=== PATIENT | female | born 1960 | race Native Hawaiian/Other Pacific Islander ===

== ENCOUNTER 2020-08-13 19:14 | Emergency (ER) | payer OTHER ==
[~2020-08-13] VITALS: Ht 154.9 cm; Wt 69.4 kg
[2020-08-13 19:14] VITALS: BP 132/71; TEMP 98.3
[~2020-08-13 19:14] MED LIST: CLON0.5T36 PO; CLON1TAB18 PO; DESCOVY 200-251 TAB PO; DIVA500T2 PO; DOCU100C10 PO; FIORICET 50-3001 CAP PO; FOLI1TAB26 PO; HYDROXYZ PAM100 MG PO; HYDROXYZINE HYD50 MG PO; IBU800 MG PO; LITHIUM CARB150 MG PO; LORA10TA3 PO; NORCO 10/325***1 TAB PO; OMEPRAZOLE DR40 MG PO; ONDA4TAB3 PO; PRAZOSIN HCL1 MG PO; QUET100T2 PO; QUET25TA2 PO; SEROQUEL25 MG PO; TIVICAY50 MG PO; WELLBUTRIN SR 100MG PO; WELLBUTRIN100 M1 PO; [UNRECOGNIZED DRUG - OTHER] TD
[2020-08-13 19:52] LABS: PLATELET COUNT 234 K/uL (152-353)
[2020-08-13 20:00] LABS: POTASSIUM 3.4 mmol/L (3.6-5.2)
[2020-08-13] MEDS ORDERED: WELLBUTRIN150 MG PO (23:10)
[2020-08-13] MEDS ORDERED: CELEXA10 MG PO (23:13)
[2020-08-13] MEDS ORDERED: CLON0.5T36 PO (23:15)
[2020-08-13] MEDS ORDERED: MIRALAX17 GM PO (23:21)
[2020-08-13] MEDS ORDERED: SENNA-S1 TAB PO (23:25)
[2020-08-13] MEDS ORDERED: VITAMIN D PO (23:31)
[2020-08-13] MEDS ORDERED: LIPITOR20 MG PO (23:32)
[2020-08-13] MEDS ORDERED: BISACODYL5 M1 PO (23:37)
[2020-08-13] MEDS ORDERED: PROM25TA52 PO (23:38)
== END 2020-08-13 21:33 | disposition other institution (70) ==
LOC: ED 19:14
PROVIDERS: Family Medicine
DX: R46.89 Other symptoms and signs involving appearance and behavior (principal); Z91.14 Patient's other noncompliance with medication regimen; Z91.11 Patient's noncompliance with dietary regimen; Z11.52 Encounter for screening for COVID-19; Z04.6 Encounter for general psychiatric examination, requested by authority
CPT/HCPCS: 80053; 81000; 85027; 87635; 93005; 99283; U0003